=== PATIENT | male | born 1960 | race African-American/Black ===

== ENCOUNTER 2016-06-14 09:06 | Emergency (ER) | payer SELFPAY ==
[2016-06-14] MEDS ORDERED: COLCHICINE 0.6 MG TABLET PO ONE ×2 (09:33→10:52)
[2016-06-14] MEDS ORDERED: INDOMETHACIN 50 MG CAPSULE PO ONE (09:33)
--- NOTE | 2016-06-14 09:39 | ER Document Report ---
HPI - HPI Patient complains to provider of: RIGHT BIG TOE PAIN AND SWELLING Onset: Other - 4-5 DAYS Onset/Duration: Gradual Quality of pain: Throbbing Severity: Moderate Pain Level: 4 Context: Patient states he had an episode last year where his right knee was red and swollen. States he had a wound on his lower leg which his dog licked so he was treated for infection. No known history of gout. Associated Symptoms: None Exacerbated by: Movement Relieved by: Denies Similar symptoms previously: Yes Recently seen / treated by doctor: No - ROS ROS below otherwise negative: Yes Systems Reviewed and Negative: Yes All other systems reviewed and negative - CONSTITUTIONAL Constitutional: DENIES: Fever - EENT EENT: DENIES: Congestion - NEURO Neurology: DENIES: Headache - CARDIOVASCULAR Cardiovascular: DENIES: Chest pain - RESPIRATORY Respiratory: DENIES: Trouble Breathing - GASTROINTESTINAL Gastrointestinal: DENIES: Abdominal Pain - URINARY Urinary: DENIES: Dysuria - MUSCULOSKELETAL Musculoskeletal: REPORTS: Extremity pain - right big toe - DERM Skin Color: Normal Skin Problems: None - redness Past Medical History - General Information source: Patient - Social History Smoking Status: Current Every Day Smoker Chew tobacco use (# tins/day): No Frequency of alcohol use: Occasional Drug Abuse: None Lives with: Family Family History: Reviewed & Not Pertinent Patient has suicidal ideation: No Patient has homicidal ideation: No - Medical History Medical History: Negative Renal/ Medical History: Denies: Hx Peritoneal Dialysis Surgical Hx: Negative - Immunizations Hx Diphtheria, Pertussis, Tetanus Vaccination: Yes - 2016 [facility] Provider Document - CONSTITUTIONAL Agree With Documented VS: Yes Exam Limitations: No Limitations General Appearance: WD/WN, No Apparent Distress - INFECTION CONTROL TRAVEL OUTSIDE OF THE [place] IN LAST 30 DAYS: No - HEENT HEENT: Atraumatic, Normocephalic - RESPIRATORY Respiratory: Breath Sounds Normal, No Respiratory Distress O2 Sat by Pulse Oximetry: 96 - CARDIOVASCULAR Cardiovascular: Regular Rate, Regular Rhythm - MUSCULOSKELETAL/EXTREMETIES Musculoskeletal/Extremeties: MAEW, FROM, Tender - Joint at base of right great toe. - NEURO Level of Consciousness: Awake, Alert, Appropriate - DERM Integumentary: Warm, Dry Notes: Erythema and tenderness to joint at base of right great toe. Course - Re-evaluation Re-evalutation: 06/14/16 10:48 Discussed labs with patient, patient have gout. - Vital Signs Vital signs: Temp Pulse Resp BP Pulse Ox 98.3 F 65 16 153/77 H 96 06/14/16 09:14 06/14/16 09:14 06/14/16 09:14 06/14/16 09:14 06/14/16 09:14 - Laboratory Result Diagrams: 06/14/16 09:54 Discharge - Discharge Clinical Impression: Gout involving toe of right foot Qualifiers: Gout etiology: unspecified cause Chronicity: acute Qualified Code(s): M10.9 - Gout, unspecified Condition: Good Disposition: HOME, SELF-CARE Instructions: Gout ([facility]), Gout Diet ([facility]) Additional Instructions: MEDS PRESCRIBED MONITOR DIET CLOSELY FOLLOW UP WITH YOUR PCP FOR RECHECK NEXT WEEK RETURN NEEDED Prescriptions: Colchicine [Colchicine 0.6 mg Tablet] 0.6 mg PO PRN PRN #15 tablet PRN Reason: Indomethacin [Indocin 50 Mg Capsule] 50 mg PO TID PRN #30 capsule PRN Reason:
[2016-06-14 10:12] LABS: ABSOLUTE BASOPHILS # (AUTO) 0.1 10^3/uL (0.0-0.2); ABSOLUTE EOSINOPHILS # (AUTO) 0.2 10^3/uL (0.0-0.6); ABSOLUTE LYMPHOCYTES (AUTO) 2.4 10^3/uL (0.5-4.7); ABSOLUTE MONOCYTES (AUTO) 1.1 10^3/uL (0.1-1.4); ABSOLUTE NEUT (AUTO) 4.9 10^3/uL (1.7-8.2); BASOPHILS % (AUTO) 0.9 % (0-2); EOSINOPHILS % (AUTO) 2.5 % (0-6); HEMOGLOBIN 14.1 g/dL (13.5-17.0); HGB HCT DIFFERENCE -0.7; LYMPHOCYTES % (AUTO) 27.9 % (13-45); MEAN CORPUSCULAR HEMOGLOBIN 29.8 pg (27.0-33.4); MEAN CORPUSCULAR HGB CONC 32.8 g/dL (32.0-36.0); MEAN CORPUSCULAR VOLUME 91 fl (80-97); MONOCYTES % (AUTO) 12.2 % (3-13); RED BLOOD COUNT 4.74 10^6/uL (4.35-5.55); RED CELL DISTRIBUTION WIDTH 12.9 % (11.5-14.0); SEGMENTED NEUTROPHILS % (AUTO) 56.5 % (42-78); WHITE BLOOD COUNT 8.7 10^3/uL (4.0-10.5)
[2016-06-14 11:04] VITALS: BP 129/72
== END 2016-06-14 11:03 | disposition home or self-care (01) ==
LOC: ER 09:06
DX: M10.9 Gout, unspecified (principal); M79.89 Other specified soft tissue disorders; M79.674 Pain in right toe(s); F17.200 Nicotine dependence, unspecified, uncomplicated
CPT/HCPCS: 99283; 36415; 84550; 85025; J3490